=== PATIENT | female | born 2000 | race Caucasian/White ===

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

== ENCOUNTER 2020-09-08 00:07 | Outpatient (CLI) | payer OTHER ==
[~2020-09-08 00:07] MED LIST changes: +KEFLEX CAP 500500 MG PO
== END 2020-09-08 01:39 | disposition home or self-care (01) ==
LOC: GENOP 00:07
DX: O36.8130 Decreased fetal movements, third trimester, not applicable or unspecified (principal); O99.891 Other specified diseases and conditions complicating pregnancy; R10.2 Pelvic and perineal pain; K62.89 Other specified diseases of anus and rectum; M54.9 Dorsalgia, unspecified; Z3A.33 33 weeks gestation of pregnancy
CPT/HCPCS: G0463

== ENCOUNTER 2020-09-19 00:08 | Outpatient (CLI) | payer OTHER | END 2020-09-19 04:26 | disposition home or self-care (01) | LOC: GENOP 00:08 | PROVIDERS: Obstetrics & Gynecology | DX: O26.893 Other specified pregnancy related conditions, third trimester (principal); Z3A.35 35 weeks gestation of pregnancy | CPT/HCPCS: 59025; 80307; 81001 ==

== ENCOUNTER 2020-10-09 23:32 | Outpatient (CLI) | payer OTHER | END 2020-10-10 02:12 | disposition home or self-care (01) | LOC: GENOP 23:32 | DX: O47.1 False labor at or after 37 completed weeks of gestation (principal); Z3A.38 38 weeks gestation of pregnancy; Z91.018 Allergy to other foods; Z79.899 Other long term (current) drug therapy | CPT/HCPCS: G0463 ==

== ENCOUNTER 2020-10-14 16:51 | Inpatient (IN) | payer OTHER ==
[~2020-10-14] VITALS: Ht 167.6 cm; Wt 116.6 kg
[2020-10-14 17:38] LABS: HEMOGLOBIN 10.4 gm/dl (12.3-15.3); RED BLOOD COUNT 3.82 M/UL (4.00-5.10); WHITE BLOOD COUNT 11.9 K/UL (4.5-11.0)
[2020-10-14] MEDS ORDERED: PRENATABS FA T1 EACH PO (18:11)
[2020-10-15] MEDS ORDERED: IBUPROFEN800 MG PO (13:48)
[2020-10-15] MEDS ORDERED: HEMOCYTE324 MG PO (13:48)
[2020-10-15] MEDS ORDERED: HYDROCODON-ACE1 EAC4 PO (13:48)
[2020-10-15] MEDS ORDERED: COLACE100 MG PO (13:48)
== END 2020-10-16 20:24 | disposition home or self-care (01) | DRG 807 ==
LOC: GENOP 16:51 → OB 17:10
PROVIDERS: Obstetrics & Gynecology; ADMIT Obstetrics & Gynecology
PROC: 0U7C7ZZ Dilation of Cervix, Via Natural or Artificial Opening (ICD-10-PCS; 2020-10-14)
PROC: 4A1HXCZ Monitoring of Products of Conception, Cardiac Rate, External Approach (ICD-10-PCS; 2020-10-14)
PROC: 10E0XZZ Delivery of Products of Conception, External Approach (ICD-10-PCS; principal; 2020-10-15)
PROC: 0KQM0ZZ Repair Perineum Muscle, Open Approach (ICD-10-PCS; 2020-10-15)
PROC: 10907ZC Drainage of Amniotic Fluid, Therapeutic from Products of Conception, Via Natural or Artificial Opening (ICD-10-PCS; 2020-10-15)
DX: O99.02 Anemia complicating childbirth (principal); Z37.0 Single live birth; D64.9 Anemia, unspecified; Z3A.39 39 weeks gestation of pregnancy; O99.214 Obesity complicating childbirth; E66.9 Obesity, unspecified; O99.824 Streptococcus B carrier state complicating childbirth; Z20.822 Contact with and (suspected) exposure to COVID-19; O76 Abnormality in fetal heart rate and rhythm complicating labor and delivery; O70.1 Second degree perineal laceration during delivery
CPT/HCPCS: 36415; 51702; 81001; 85014; 85018; 85025; 90707; 90715; J2405; J2590; J2795; J7120; U0002

== ENCOUNTER 2021-09-27 00:07 | Outpatient (CLI) | payer OTHER ==
[~2021-09-27 00:07] MED LIST changes: +COLACE100 MG PO; +HEMOCYTE324 MG PO; +HYDROCODON-ACE1 EAC4 PO; +IBUPROFEN800 MG PO; +PRENATABS FA T1 EACH PO
== END 2021-09-27 02:23 | disposition home or self-care (01) ==
LOC: GENOP 00:07
DX: O99.891 Other specified diseases and conditions complicating pregnancy (principal); R10.2 Pelvic and perineal pain; R10.9 Unspecified abdominal pain; M54.9 Dorsalgia, unspecified; Z3A.28 28 weeks gestation of pregnancy
CPT/HCPCS: 81001; 96372; J0696

== ENCOUNTER 2021-11-10 09:39 | Outpatient (CLI) | payer OTHER | END 2021-11-10 13:29 | disposition home or self-care (01) | LOC: GENOP 09:39 | DX: O99.891 Other specified diseases and conditions complicating pregnancy (principal); M54.9 Dorsalgia, unspecified; O99.343 Other mental disorders complicating pregnancy, third trimester; F31.9 Bipolar disorder, unspecified; F20.9 Schizophrenia, unspecified; Z3A.34 34 weeks gestation of pregnancy | CPT/HCPCS: 81001; 96361; 96365; 96367; J0696; J7030; J7120 ==

== ENCOUNTER → 2021-11-15 | Outpatient (CLI) | payer OTHER ==
[~2021-11-15] MED LIST changes: +PERCOCET 5/325 T1 EA PO
[2021-11-15 12:03] LABS: HEMOGLOBIN 7.4 gm/dl (12.3-15.3); RED BLOOD COUNT 3.43 M/UL (4.00-5.10); WHITE BLOOD COUNT 10.7 K/UL (4.5-11.0)
[2021-11-15 12:20] LABS: BUN/CREATININE RATIO 12 (0-10)
[2021-11-15 12:32] LABS: URINE TOTAL PROTEIN 156 mg/dl
== END ==
LOC: LAB 11:37
PROVIDERS: Obstetrics & Gynecology
DX: O10.919 Unspecified pre-existing hypertension complicating pregnancy, unspecified trimester (principal)
CPT/HCPCS: 36415; 80053; 80076; 83615; 84156; 84550; 85025; 85379; 85384; 85610; 85730

== ENCOUNTER 2021-11-17 21:09 | Inpatient (IN) | payer OTHER ==
[~2021-11-17] VITALS: Ht 167.6 cm; Wt 109.3 kg
[~2021-11-17 21:09] MED LIST changes: -PERCOCET 5/325 T1 EA PO
[2021-11-17 22:51] LABS: HEMOGLOBIN 7.1 gm/dl (12.3-15.3); RED BLOOD COUNT 3.28 M/UL (4.00-5.10); WHITE BLOOD COUNT 9.1 K/UL (4.5-11.0)
[2021-11-18] MEDS ORDERED: COLACE100 MG PO (00:49)
[2021-11-18] MEDS ORDERED: IBUPROFEN600 MG PO (00:49)
[2021-11-18] MEDS ORDERED: PERCOCET 5/325 T1 EA PO (00:49)
[2021-11-18] MEDS ORDERED: HEMOCYTE324 MG PO (00:49)
[2021-11-18 07:07] LABS: HEMOGLOBIN 5.6 gm/dl (12.3-15.3)
[2021-11-18 18:12] LABS: HEMOGLOBIN 8.1 gm/dl (12.3-15.3)
[2021-11-20] MEDS ORDERED: TRANDATE 100 M100 MG PO (14:47)
== END 2021-11-20 15:49 | disposition home or self-care (01) | DRG 787 ==
LOC: GENOP 21:09 → CDU 11-18 00:42 → OB 11-18 00:42
PROVIDERS: Obstetrics & Gynecology; ADMIT Obstetrics & Gynecology
PROC: 4A1HXCZ Monitoring of Products of Conception, Cardiac Rate, External Approach (ICD-10-PCS; 2021-11-17)
PROC: 10D00Z1 Extraction of Products of Conception, Low, Open Approach (ICD-10-PCS; principal; 2021-11-17 23:34)
PROC: 30233N1 Transfusion of Nonautologous Red Blood Cells into Peripheral Vein, Percutaneous Approach (ICD-10-PCS; 2021-11-18)
PROC: 3E0234Z Introduction of Serum, Toxoid and Vaccine into Muscle, Percutaneous Approach (ICD-10-PCS; 2021-11-18)
DX: O30.043 Twin pregnancy, dichorionic/diamniotic, third trimester (principal); D62 Acute posthemorrhagic anemia; O13.4 Gestational [pregnancy-induced] hypertension without significant proteinuria, complicating childbirth; Z20.822 Contact with and (suspected) exposure to COVID-19; Z3A.35 35 weeks gestation of pregnancy; O32.1XX1 Maternal care for breech presentation, fetus 1; O32.1XX2 Maternal care for breech presentation, fetus 2; Z37.2 Twins, both liveborn; O90.81 Anemia of the puerperium; O99.73 Diseases of the skin and subcutaneous tissue complicating the puerperium; R21 Rash and other nonspecific skin eruption; Z81.8 Family history of other mental and behavioral disorders; Z82.49 Family history of ischemic heart disease and other diseases of the circulatory system; Z28.310 Unvaccinated for COVID-19; Z88.1 Allergy status to other antibiotic agents; Z83.3 Family history of diabetes mellitus; Z80.9 Family history of malignant neoplasm, unspecified; Z83.2 Family history of diseases of the blood and blood-forming organs and certain disorders involving the immune mechanism; Z23 Encounter for immunization
CPT/HCPCS: 36415; 80307; 81001; 82247; 82248; 82565; 84450; 84460; 84550; 85014; 85018; 85025; 85379; 85384; 85610; 85730; 86850; 86900; 86901; 86920; 90471; 90707; 90715; C9113; J0690; J1170; J1200; J1885; J2274; J2370; J2405; J2590; J2795; J3010; J3430; J7120; P9016

== ENCOUNTER → 2022-01-25 | Outpatient (CLI) | payer OTHER ==
[~2022-01-25] MED LIST changes: +PERCOCET 5/325 T1 EA PO; +TRANDATE 100 M100 MG PO
== END ==
LOC: LAB 13:07
DX: N92.6 Irregular menstruation, unspecified (principal)
CPT/HCPCS: 36415; 84702